=== PATIENT | female | born 1980 | race Caucasian/White ===

== ENCOUNTER 2016-12-20 16:01 | Emergency (ER) | payer OTHER ==
[~2016-12-20] VITALS: Ht 167.6 cm; Wt 67.0 kg
[~2016-12-20 16:01] MED LIST: IBUP-1542 PO; IBUP800T25 PO; PERCOCET PO; PREN-39 PO; TRAM50TA2 PO
[2016-12-20 16:08] VITALS: Ht 167.6 cm; Wt 67.0 kg
[2016-12-20] MEDS ORDERED: ONDANSETRON 4 MG INJ IV STA (17:01)
[2016-12-20] MEDS ORDERED: SOD CHLORIDE 0.9% 1,000 ML IV STA (17:01)
[2016-12-20] MEDS ORDERED: BELLADONNA/PHENOBARBITAL TAB PO STA (17:01)
[2016-12-20] MEDS ORDERED: LIDOCAINE/MYLANTA 40 ML BTL PO STA (17:01)
[2016-12-20 17:25] LABS: ADD SCAN DIFF NO
[2016-12-20 17:26] LABS: BASOPHIL # 0.1 10^3/ul (0.0-0.1); BASOPHILS % 0.4 % (0.0-2.0); EOSINOPHILS # 0.1 10^3/ul (0.0-0.5); HEMATOCRIT 39.5 % (37.0-47.0); HEMOGLOBIN 12.7 g/dl (12.0-16.0); LYMPHOCYTES # 2.6 10^3/ul (0.8-2.9); LYMPHOCYTES % 22.7 % (15.0-51.0); MEAN CORPUSCULAR HEMOGLOBIN 27.3 pg (29.0-33.0); MEAN CORPUSCULAR HGB CONC 32.2 g/dl (32.0-37.0); MEAN CORPUSCULAR VOLUME 84.8 fl (82.0-101.0); MONOCYTES % 8.7 % (0.0-11.0); NEUTROPHIL # 7.5 10^3/ul (1.6-7.5); NEUTROPHILS % 66.7 % (39.0-77.0); PLATELET COUNT 348 10^3/UL (140-415); RED BLOOD COUNT 4.66 10^6/ul (4.20-5.40); RED CELL DISTRIBUTION WIDTH 13.3 % (11.5-14.5); WHITE BLOOD COUNT 11.3 10^3/ul (4.8-10.8)
[2016-12-20 17:44] LABS: ADD UMIC NO; URINE BILIRUBIN (Dip) NEGATIVE (NEGATIVE); URINE BLOOD (Dip) NEGATIVE (NEGATIVE); URINE COLOR LT. YELLOW (YELLOW); URINE GLUCOSE (Dip) NEGATIVE (NEGATIVE); URINE KETONES (Dip) NEGATIVE (NEGATIVE); URINE LEUKOCYTE ESTERASE (Dip) NEGATIVE (NEGATIVE); URINE NITRITE (Dip) NEGATIVE (NEGATIVE); URINE TOTAL PROTEIN (Dip) NEGATIVE (NEGATIVE); URINE UROBILINOGEN (Dip) 0.2 E.U./dL (0.1-1.0)
[2016-12-20 17:52] LABS: ALBUMIN 4.5 g/dl (3.3-4.9); POTASSIUM 3.5 mmol/L (3.5-5.1)
[2016-12-20 17:54] LABS: BILIRUBIN,INDIRECT 0.2 mg/dl (0-1.1); BILIRUBIN,TOTAL 0.2 mg/dl (0.2-1.3); CREATININE 0.84 mg/dl (0.44-1.00)
[2016-12-20 17:55] LABS: ALBUMIN/GLOBULIN RATIO 1.32; CALCIUM 9.2 mg/dl (8.4-10.2); TOTAL PROTEIN 7.9 g/dl (6.1-8.1)
[2016-12-20] MEDS ORDERED: FAMO40TA52 PO (18:08)
[2016-12-20] MEDS ORDERED: CIPR500T4 PO (18:08)
[2016-12-20] MEDS ORDERED: MAG355OR14 PO (18:08)
--- NOTE | 2016-12-20 18:37 | ERD ---
ER Documentation Chief Complaint Date/Time DATE: 12/20/16 TIME: 18:32 Chief Complaint PAINFUL, FREQUENT URINATION LOWER PELVIC PAIN X 4 DAYS W/NAUSEA HPI This is a 36-year-old with multiple complaints including upper epigastric abdominal pain which she describes as cutting and burning, associated with belching and nausea. She also complains of suprapubic abdominal pain and dysuria and wants to know she is . She has had some recent vaginal discharge although denies unprotected sexual intercourse, no vaginal bleeding, no chest pain or shortness of breath, no trauma, no headache or blurry vision. ROS All systems reviewed and are negative except as per history of present illness. Medications Home Meds Active Scripts Ciprofloxacin Hcl* (Ciprofloxacin Hcl*) 500 Mg Tablet, 500 MG PO BID for 5 Days , TAB Prov:ANNA BARDALES MD 12/20/16 Famotidine* (Famotidine*) 40 Mg Tablet, 40 MG PO DAILY, #30 TAB Prov:ANNA BARDALES MD 12/20/16 Mag Hydrox/Al Hydrox/Simeth (Maalox Advanced Suspension) 355 Ml Oral.susp, 2 TSP PO TID, #24 OZ Prov:ANNA BARDALES MD 12/20/16 Ibuprofen* (Motrin*) 800 Mg Tab, 800 MG PO Q6, #30 TAB Prov:ARNIE GARCIA PA-C 05/20/16 Tramadol HCl (Tramadol HCl) 50 Mg Tablet, 50 MG PO Q4 Y for PAIN, #20 TAB Prov:MARLENY ZAMAN MD 10/07/15 Ibuprofen* (Motrin*) 600 Mg Tab, 600 MG PO Q6, #20 TAB Prov:MARLENY ZAMAN MD 10/07/15 Oxycodone Hcl/Acetaminophen (Percocet) 1 Tab Tab, 1 TAB PO Q4H Y for PAIN LEVEL 4-6, #30 TAB Prov:RAGHU HUERTA MD 08/16/14 Reported Medications Vits W-Ca,Fe,Fa(<1MG) ( Vitamins) 1 Tab Tablet, 1 TAB PO DAILY 06/02/14 Allergies Allergies: Coded Allergies: No Known Allergies (Verified Allergy, Mild, 08/13/14) PMhx/Soc None History of Surgery: Yes () Anesthesia Reaction: No Hx Neurological Disorder: No Hx Respiratory Disorders: No Hx Cardiac Disorders: No Hx Psychiatric Problems: Yes (Depression; Anxiety) Hx Miscellaneous Medical Probl: Yes (Acne; ) Hx Alcohol Use: No Hx Substance Use: No Hx Tobacco Use: Yes Smoking Status: Current every day smoker FmHx Family History: No diabetes Physical Exam Vitals Vital Signs Date Time Temp Pulse Resp B/P Pulse Ox O2 Delivery O2 Flow Rate FiO2 12/20/16 16:08 98.6 97 20 143/73 99 Physical Exam GENERAL: Well-developed, well-nourished, well-hydrated, in no apparent distress , looks nontoxic in appearance HEENT: Moist mucous membranes, pink conjunctiva, no cervical spine tenderness or step-off deformities, no goiter, no jaundice or icterus, extraocular movements intact without pain. No submandibular induration, and no pharyngeal erythema NEURO: Alert and oriented 3, cranial nerves II through XII intact bilaterally, pupils equal round reactive to light, no focal deficits or facial asymmetry, sensation intact distally Strength 5/5 in upper and lower extremities bilaterally CARDIAC: Regular rate and rhythm, no murmurs rubs or gallops LUNGS: Clear bilaterally no wheezing crackles or stridor ABDOMEN: Soft nontender, no guarding, no rigidity, no rebound, no psoas sign no obturator sign. Normoactive bowel sounds SKIN: Warm and dry to touch, no abrasions, contusions, or hematomas, no lacerations, no ecchymosis, no target lesions, and without ulcers EXTREMITIES: No clubbing cyanosis or edema, calves are bilaterally symmetrical, no Homans sign, no popliteal cord sign. Distal pulses equal and bilateral PSYCH: Normal affect without agitation or irritability Result Diagram: 12/20/16 1717 12/20/16 1717 Results 24 hrs Laboratory Tests Test 12/20/16 17:08 12/20/16 17:17 Urine Color LT. YELLOW Urine Clarity CLEAR Urine pH 6.0 Urine Specific [place] 1.025 Urine Ketones NEGATIVE Urine Nitrite NEGATIVE Urine Bilirubin NEGATIVE Urine Urobilinogen 0.2 E.U./dL Urine Leukocyte Esterase NEGATIVE Urine Hemoglobin NEGATIVE Urine Glucose NEGATIVE% Urine Total Protein NEGATIVE White Blood Count 11.310^3/ul Red Blood Count 4.6610^6/ul Hemoglobin 12.7g/dl Hematocrit 39.5% Mean Corpuscular Volume 84.8fl Mean Corpuscular Hemoglobin 27.3pg Mean Corpuscular Hemoglobin Concent 32.2g/dl Red Cell Distribution Width 13.3% Platelet Count 99076^3/UL Mean Platelet Volume 10.0fl Neutrophils % 66.7% Lymphocytes % 22.7% Monocytes % 8.7% Eosinophils % 1.0% Basophils % 0.4% Nucleated Red Blood Cells % 0.0/100WBC Neutrophils # 7.510^3/ul Lymphocytes # 2.610^3/ul Monocytes # 1.010^3/ul Eosinophils # 0.110^3/ul Basophils # 0.110^3/ul Nucleated Red Blood Cells # 0.010^3/ul Sodium Level 143mmol/L Potassium Level 3.5mmol/L Chloride Level 102mmol/L Carbon Dioxide Level 27mmol/L Anion Gap 18 Blood Urea Nitrogen 24mg/dl Creatinine 0.84mg/dl Glucose Level 78mg/dl Calcium Level 9.2mg/dl Total Bilirubin 0.2mg/dl Direct Bilirubin 0.00mg/dl Indirect Bilirubin 0.2mg/dl Aspartate Amino Transf (AST/SGOT) 16IU/L Alanine Aminotransferase (ALT/SGPT) 34IU/L Alkaline Phosphatase 60IU/L Total Protein 7.9g/dl Albumin 4.5g/dl Globulin 3.40g/dl Albumin/Globulin Ratio 1.32 Lipase 104U/L Current Medications Medications (Trade) Dose Ordered Sig/Brian Route PRN Reason Start Time Stop Time Status Last Admin Dose Admin Sodium Chloride (NS) 1,000 ml @ 1,000 mls/hr Q1H STAT IV 12/20/16 17:01 12/20/16 18:00 DC 12/20/16 17:28 Ondansetron HCl (Zofran Inj) 4 mg ONCE STAT IV 12/20/16 17:01 12/20/16 17:02 DC 12/20/16 17:31 Miscellaneous Medication (Gi Cocktail (2)) 40 ml ONCE STAT PO 12/20/16 17:01 12/20/16 17:02 DC 12/20/16 17:26 Belladonna/ Phenobarbital () 2 tab ONCE STAT PO 12/20/16 17:01 12/20/16 17:02 DC 12/20/16 17:27 Procedures/MDM IV line was established patient was placed on cardiac rehabilitation specialist rhythm strip revealed a sinus rhythm at about 80 bpm with upright P and T waves. Patient was afebrile. test was negative and urine analysis was clear. CBC and electrolytes are normal, liver function tests are normal. I administered 1 L normal saline intravenously, Zofran 4 mg IV, GI cocktail 50 cc p.o., and famotidine 40 mg p.o. with resolution of symptoms. Patient's vital signs are normal in repeat abdominal exam was unremarkable. She has no right lower quadrant tenderness, no anorexia, fever, or vomiting. 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 Although given her dysuria I will treat her as an outpatient with oral antibiotics. I recommended she repeat her urine analysis after antibiotics are complete. Differential diagnoses considered, included but not limited to cervicitis, pelvic inflammatory disease, ectopic , sepsis, stroke, meningitis, encephalitis, pneumonia, appendicitis, cholecystitis, bowel obstruction, pyelonephritis, nephrolithiasis, cystitis, as well as metabolic, hematologic, and electrolyte abnormalities. As well as abscess, cellulitis, fractures, and dislocations. Patient feels much better at this time, and vital signs are normal, symptoms have improved. I did give strict instructions to return to the ED if symptoms continue or worsen, patient will otherwise follow-up with primary care physician. Patient understood instructions and agreed to plan. Disclaimer: Inadvertent spelling or grammatical errors are likely due to EHR/ dictation software use and do not reflect on the overall quality of patient care. Departure Diagnosis: Primary Impression: Abdominal pain Abdominal location: generalized Qualified Code: R10.84 - Generalized abdominal pain Additional Impression: Cystitis Condition: Good Patient Instructions: Abdominal Pain ANNA BARDALES MD December 20, 2016 18:37
== END 2016-12-20 18:17 | disposition home or self-care (01) ==
LOC: FTE 16:01
DX: R10.84 Generalized abdominal pain (principal); N30.90 Cystitis, unspecified without hematuria; F17.210 Nicotine dependence, cigarettes, uncomplicated; R11.0 Nausea; R10.2 Pelvic and perineal pain
CPT/HCPCS: 36415; 80053; 81003; 83690; 85025; 96361; 96374; J2405; J7030; Z7502; Z7610

== ENCOUNTER 2017-01-22 14:00 | Emergency (ER) | payer OTHER ==
[~2017-01-22] VITALS: Ht 170.2 cm; Wt 67.0 kg
[~2017-01-22 14:00] MED LIST changes: +CIPR500T4 PO; +FAMO40TA52 PO; +MAG355OR14 PO
[2017-01-22 14:29] VITALS: Ht 170.2 cm; Wt 67.0 kg
[2017-01-22 17:49] LABS: URINE BLOOD (Dip) POC Trace-intact (NEGATIVE)
[2017-01-22] MEDS ORDERED: ACYC800T57 PO (17:59)
[2017-01-22] MEDS ORDERED: IBUP-1542 PO (18:07)
[2017-01-22 18:14] VITALS: BP 132/67; PULSE 86; RESP 18; TEMP 98.1
--- NOTE | 2017-01-22 18:14 | ERD ---
ER Documentation Chief Complaint Date/Time DATE: 01/22/17 TIME: 18:09 Chief Complaint PT TOOK YEAST INFECTION MED NOT IMPROVING AND HAS PAINFUL SORES HPI This is a 36-year-old female presents to the ER with painful vaginal sores, which has been there for the last 3 days. Patient states that she is currently sexually active with only has these condoms. Patient had vaginal itching a week ago and then developed these vaginal sores. Patient denies any vaginal discharge. She denies any urinary frequency or dysuria however it does hurt when she urinates secondary to the urine she disorders. Denies any fevers or chills. ROS 12 point review of systems was done, all negative except per HPI. Medications Home Meds Active Scripts Ibuprofen* (Motrin*) 600 Mg Tab, 600 MG PO Q6, #30 TAB Prov:RANDY OTT 01/22/17 Acyclovir* (Zovirax*) 800 Mg Tablet, 800 MG PO 5 TIMES DAILY for 7 Days, TAB Prov:RANDY OTT 01/22/17 Ciprofloxacin Hcl* (Ciprofloxacin Hcl*) 500 Mg Tablet, 500 MG PO BID for 5 Days , TAB Prov:ANNA BARDALES MD 12/20/16 Famotidine* (Famotidine*) 40 Mg Tablet, 40 MG PO DAILY, #30 TAB Prov:ANNA BARDALES MD 12/20/16 Mag Hydrox/Al Hydrox/Simeth (Maalox Advanced Suspension) 355 Ml Oral.susp, 2 TSP PO TID, #24 OZ Prov:ANNA BARDALES MD 12/20/16 Ibuprofen* (Motrin*) 800 Mg Tab, 800 MG PO Q6, #30 TAB Prov:ARNIE GARCIA PA-C 05/20/16 Tramadol HCl (Tramadol HCl) 50 Mg Tablet, 50 MG PO Q4 Y for PAIN, #20 TAB Prov:MARLENY ZAMAN MD 10/07/15 Ibuprofen* (Motrin*) 600 Mg Tab, 600 MG PO Q6, #20 TAB Prov:MARLENY ZAMAN MD 10/07/15 Oxycodone Hcl/Acetaminophen (Percocet) 1 Tab Tab, 1 TAB PO Q4H Y for PAIN LEVEL 4-6, #30 TAB Prov:RAGHU HUERTA MD 08/16/14 Reported Medications Vits W-Ca,Fe,Fa(<1MG) ( Vitamins) 1 Tab Tablet, 1 TAB PO DAILY 06/02/14 Allergies Allergies: Coded Allergies: No Known Allergies (Verified Allergy, Mild, 08/13/14) PMhx/Soc History of Surgery: Yes () Anesthesia Reaction: No Hx Neurological Disorder: No Hx Respiratory Disorders: No Hx Cardiac Disorders: No Hx Psychiatric Problems: Yes (Depression; Anxiety) Hx Miscellaneous Medical Probl: Yes (Acne; ) Hx Alcohol Use: No Hx Substance Use: No Hx Tobacco Use: Yes Smoking Status: Never smoker Physical Exam Vitals Vital Signs Date Time Temp Pulse Resp B/P Pulse Ox O2 Delivery O2 Flow Rate FiO2 01/22/17 14:29 99.8 93 18 140/80 97 Physical Exam Const: [] Head: Atraumatic Neck: Full range of motion..~ No meningismus. Resp: Clear to auscultation bilaterally Cardio: Regular rate and rhythm, no murmurs Abd: Soft, non tender, non distended. Normal bowel sounds : Vesicular lesions on labia major and labia minora. No vaginal discharge. negative chandilier sign Back: No midline or flank tenderness Neur: Awake and alert Psych: Normal Mood and Affect Results 24 hrs Laboratory Tests Test 01/22/17 17:53 Bedside Urine pH (LAB) 6.0 Bedside Urine Protein (LAB) 1+ Bedside Urine Glucose (UA) Negative Bedside Urine Ketones (LAB) Negative Bedside Urine Blood Trace-intact Bedside Urine Nitrite (LAB) Negative Bedside Urine Leukocyte Esterase (L Negative Procedures/MDM Differential diagnosis includes but is not limited to; UTI, pyelonephritis, chlamydia, gonorrhea, herpes, yeast infection, pelvic inflammatory disease, tubo -ovarian abscess. This is a 36-year-old female presents to the ER with painful vaginal sores. Patient does have genital herpes on physical examination. She'll be sent home with acyclovir. Suspicion for chlamydia or gonorrhea is low as patient does not have any vaginal discharge and has been using condoms in a monogamous relations, However i told patient to follow up with primary care doctor and obtain a full STD panel. Suspicion for pelvic inflammatory disease is low there was no cervical motion tenderness. I doubt tubo-ovarian abscess patient does not have any pelvic pain or fever or chills. Patient is to follow- up with her primary care doctor within 1-2 days return to ER sooner symptoms worsen. Medical decision making [place] with the patient she understands and agrees with plan. Departure Diagnosis: Primary Impression: Genital herpes Condition: Stable Patient Instructions: Herpes: Caring for Sores Additional Instructions: Call your primary care doctor TOMORROW for an appointment during the next 1-2 days.See the doctor sooner or return here if your condition worsens before your appointment time. RANDY OTT Jan 22, 2017 18:14
== END 2017-01-22 18:15 | disposition home or self-care (01) ==
LOC: FTE 14:00
DX: A60.00 Herpesviral infection of urogenital system, unspecified (principal); Z87.891 Personal history of nicotine dependence
CPT/HCPCS: 81003; Z7502; 99283

== ENCOUNTER 2017-04-26 12:38 | Emergency (ER) | payer OTHER ==
[~2017-04-26] VITALS: Ht 165.1 cm; Wt 68.5 kg
[~2017-04-26 12:38] MED LIST changes: +ACYC800T57 PO
[2017-04-26 12:45] VITALS: Ht 165.1 cm; Wt 68.5 kg
[2017-04-26 13:38] LABS: URINE BLOOD (Dip) POC Negative (NEGATIVE)
--- NOTE | 2017-04-26 13:49 | RADRPT ---
PROCEDURE: CT Brain without contrast. CLINICAL INDICATION: Trauma. Dizziness. TECHNIQUE: A CT of the brain was performed on a multidetector CT scanner utilizing axial imaging f rom the skull base through the vertex without IV contrast. Multiplanar reformatted images were made . Images were reviewed on a PACS workstation. The CTDIvol is 44 mGy and the DLP is 720 mGycm. Individualized dosed optimization technique was used for the performance of this exam. This included 1. Automated exposure control. 2. Adjustment of the mA and / or kV according to the patient's size. 3. The use of iterative reconstruction technique. COMPARISON: None FINDINGS: There is no intracranial hemorrhage, mass effect, or midline shift. No extra-axial fluid collection is seen. The ventricles and sulci are normal in size and configuration. The density of the brain is normal, and the hernandez white matter differentiation appears well-preserved. The visualized paranasal sinuses and osseous structures are grossly unremarkable. IMPRESSION: 1. No evidence of acute intracranial pathology. 2. The brain is normal in appearance. .Giuseppe Martin MD, MD Date Time Electronically viewed and signed by .Giuseppe Martin MD, on 04/26/2017 13:49 .A/
--- NOTE | 2017-04-26 14:09 | ERD ---
ER Documentation Chief Complaint Date/Time DATE: 04/26/17 TIME: 14:09 Chief Complaint fall down stairs hit head x 5 days, +dizziness/n/v/low ap w/ sharp pains HPI Patient is a 37-year-old female with no medical problems who presents with headache and abdominal pain. The patient says that on Friday she fell down the steps and hit her left forehead. She was dizzy and nauseous afterwards but did not vomit. Yesterday she had near syncope. She is feeling a whole body weakness. She also noticed that she felt pale and then started with lower abdominal pain with vomiting today. She tried Motrin for her pain. Upon review of old medical records this is the patient's 14th visit to the ER since 2006. She does not remember the name of her primary doctor. ROS All systems reviewed and are negative except as per history of present illness. Medications Home Meds Discontinued Reported Medications Vits W-Ca,Fe,Fa(<1MG) ( Vitamins) 1 Tab Tablet, 1 TAB PO DAILY 06/02/14 Discontinued Scripts Ibuprofen* (Motrin*) 600 Mg Tab, 600 MG PO Q6, #30 TAB Prov:RANDY OTT 01/22/17 Acyclovir* (Zovirax*) 800 Mg Tablet, 800 MG PO 5 TIMES DAILY for 7 Days, TAB Prov:RANDY OTT 01/22/17 Ciprofloxacin Hcl* (Ciprofloxacin Hcl*) 500 Mg Tablet, 500 MG PO BID for 5 Days , TAB Prov:ANNA BARDALES MD 12/20/16 Famotidine* (Famotidine*) 40 Mg Tablet, 40 MG PO DAILY, #30 TAB Prov:ANNA BARDALES MD 12/20/16 Mag Hydrox/Al Hydrox/Simeth (Maalox Advanced Suspension) 355 Ml Oral.susp, 2 TSP PO TID, #24 OZ Prov:ANNA BARDALES MD 12/20/16 Ibuprofen* (Motrin*) 800 Mg Tab, 800 MG PO Q6, #30 TAB Prov:ARNIE GARCIA PA-C 05/20/16 Tramadol HCl (Tramadol HCl) 50 Mg Tablet, 50 MG PO Q4 Y for PAIN, #20 TAB Prov:MARLENY ZAMAN MD 10/07/15 Ibuprofen* (Motrin*) 600 Mg Tab, 600 MG PO Q6, #20 TAB Prov:MARLENY ZAMAN MD 10/07/15 Oxycodone Hcl/Acetaminophen (Percocet) 1 Tab Tab, 1 TAB PO Q4H Y for PAIN LEVEL 4-6, #30 TAB Prov:RAGHU HUERTA MD 08/16/14 Allergies Allergies: Coded Allergies: No Known Allergies (Verified Allergy, Mild, 04/26/17) PMhx/Soc Medical and Surgical Hx: pt denies Medical Hx History of Surgery: Yes () Anesthesia Reaction: No Hx Neurological Disorder: No Hx Respiratory Disorders: No Hx Cardiac Disorders: No Hx Psychiatric Problems: Yes (Depression; Anxiety) Hx Miscellaneous Medical Probl: Yes (Acne; ) Hx Alcohol Use: No Hx Substance Use: No Hx Tobacco Use: Yes Smoking Status: Current every day smoker FmHx Family History: diabetes Physical Exam Vitals Vital Signs Date Time Temp Pulse Resp B/P Pulse Ox O2 Delivery O2 Flow Rate FiO2 04/26/17 14:22 77 18 125/68 99 Room Air 04/26/17 12:45 98.5 104 18 156/104 100 Physical Exam Const: Mild distress secondary to pain Head: Atraumatic Eyes: Normal Conjunctiva ENT: Normal External Ears, Nose and Mouth. Neck: Full range of motion..~ No meningismus. Resp: Clear to auscultation bilaterally Cardio: Regular rate and rhythm, no murmurs Abd: Soft, lower abdominal pain bilaterally without rebound or guarding Skin: Abrasion to the left forehead from previous fall Back: No midline or flank tenderness Ext: No cyanosis, or edema Neur: Awake and alert Psych: Normal Mood and Affect Results 24 hrs Laboratory Tests Test 04/26/17 13:45 04/26/17 13:59 Bedside Urine pH (LAB) 7.0 Bedside Urine Protein (LAB) 1+ Bedside Urine Glucose (UA) Negative Bedside Urine Ketones (LAB) Negative Bedside Urine Blood Negative Bedside Urine Nitrite (LAB) Negative Bedside Urine Leukocyte Esterase (L Negative Bedside Glucose 85mg/dL Procedures/MDM EKG read by me: Rate/Rhythm: Regular rate and rhythm at a rate of 80 Intervals: Normal Impression: No evidence of ischemia or arrhythmia The brain negative per radiology. Accu-Chek normal. Urine test negative. Smoking Cessation Therapy: Pt. was lectured for greater than 3 minutes on the health risks of continued smoking and the benefits of cessation. Patient is a 37-year-old female who presents with abdominal pain and headache. CT brain was negative. test is negative. Accu-Chek is normal. EKG shows no signs of ischemia. At this point I believe outpatient management is appropriate. The patient will need to follow-up closely with her primary doctor however within 24 hours for evaluation. At this point I doubt serious intra-abdominal process such as appendicitis, cholecystitis, pancreatitis, or bowel obstruction. I doubt or ectopic . The patient has had multiple visits for similar type complaints in the past. I do not believe she requires further workup or imaging studies at this time. I believe a CT scan of the abdomen pelvis the risk would outweigh the benefits. Departure Diagnosis: Primary Impression: Abdominal pain Abdominal location: lower abdomen, unspecified Qualified Code: R10.30 - Lower abdominal pain Additional Impression: Dizziness Condition: Fair Patient Instructions: Abdominal Pain, Dizziness, Unk Cause Referrals: Your doctor Additional Instructions: Call your primary care doctor TOMORROW for an appointment during the next 1-2 days.See the doctor sooner or return here if your condition worsens before your appointment time. JEFF JOHNSON MD Apr 26, 2017 14:09
[2017-04-26 14:22] VITALS: BP 125/68; PULSE 77; RESP 18
== END 2017-04-26 14:24 | disposition home or self-care (01) ==
LOC: E/R 12:38
DX: R10.30 Lower abdominal pain, unspecified (principal); R40.2252 Coma scale, best verbal response, oriented, at arrival to emergency department; R40.2142 Coma scale, eyes open, spontaneous, at arrival to emergency department; R40.2362 Coma scale, best motor response, obeys commands, at arrival to emergency department; F17.210 Nicotine dependence, cigarettes, uncomplicated
CPT/HCPCS: 70450; 81003; 82962; 93005; Z7502